=== PATIENT | male | born 1950 | race Caucasian/White ===

== ENCOUNTER → 2019-04-21 | Outpatient (CLI) | payer MEDICARE, BC ==
[~2019-04-21] MED LIST: ALTACE5 M1 PO; AMBIEN10 MG PO; BENADRYL ALLERG25 MG PO; CIALIS5 MG PO; FUROSEMIDE20 MG PO; LANTUS 3ML100 UNITS/ SC; LOVAZA1 GM PO; MYCOPHENOLATE500 MG PO; OCUVITE TABLET1 EAC1 PO; OSCAL D500 MG PO; PROCARDIA XL90 MG PO; SEE LIST ON CHART; TACROLIMUS1 MG PO; TRAMADOL PO; VICODIN PO; ZEBETA10 M1 PO
--- NOTE | 2019-04-21 12:15 | Diagnostic Imaging Report ---
EXAMINATION: PA and lateral views of the chest. COMPARISON: None CLINICAL HISTORY: Cough for 7 weeks, shortness of breath DISCUSSION: Lines/tubes: None. Lungs: The lungs are well inflated. Patchy opacity in the anterior right middle lobe. There is no evidence of pulmonary edema. Pleura: There is no pleural effusion or pneumothorax. Eventration of the right hemidiaphragm Heart and mediastinum: Cardiomediastinal silhouette is unremarkable. Pulmonary vasculature is normal. Bones and soft tissues: No acute bony abnormalities. Mild age-appropriate degenerative changes in the thoracic spine IMPRESSION: 1. Patchy opacity in the anterior right middle lobe may reflect atelectasis given the eventration, however, early pneumonia is a consideration in the appropriate clinical setting. Recommend chest PA and lateral 4-6 weeks after appropriate treatment, if given, to document stability or resolution. Signed by: Dr. Zeb Garcia M.D. on 04/21/2019 12:12 PM
[2019-04-21 12:40] LABS: ALBUMIN 3.6 g/dL (3.5-5.0); ALBUMIN/GLOBULIN RATIO 0.8 (0.8-2.0); ANION GAP 13.6 mmol/L (8-16); CALCIUM 9.5 mg/dL (8.4-10.2); CREATININE, SERUM 1.41 mg/dL (0.72-1.25); POTASSIUM 4.6 mmol/L (3.5-5.1)
== END ==
LOC: RAD 11:17
PROVIDERS: ATTEND Internal Medicine Interventional Cardiology
DX: R05 Cough (principal); R06.02 Shortness of breath; J18.9 Pneumonia, unspecified organism
CPT/HCPCS: 36415; 71046; 80053

== ENCOUNTER → 2019-05-24 | Outpatient (CLI) | payer MEDICARE, BC ==
--- NOTE | 2019-05-24 14:20 | Diagnostic Imaging Report ---
Chest, 2 views, 05/24/2019. History: Follow-up of possible right middle lobe pneumonia. Comparison: 04/21/2019. 03/29/2013, 08/06/2012. Findings: The cardiomediastinal silhouette and pulmonary vasculature are within normal limits. There is unchanged elevation of the right hemidiaphragm with adjacent minimal linear opacity. No focal consolidation. There are no acute osseous or soft tissue abnormalities. 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 Signed by: Shashank Pitt on 05/24/2019 2:17 PM
== END ==
LOC: RAD 13:08
DX: Z09 Encounter for follow-up examination after completed treatment for conditions other than malignant neoplasm (principal); J18.9 Pneumonia, unspecified organism
CPT/HCPCS: 71046

== ENCOUNTER → 2021-11-12 | Day surgery (SDC) | payer MEDICARE ==
[2021-11-11 10:21] LABS: BASOPHILS # (AUTO) 0.1 (0.0-0.1); BASOPHILS % 0.5 % (0.0-1.0); EOSINOPHILS # (AUTO) 0.4 (0.0-0.4); EOSINOPHILS % 3.9 % (0.0-6.0); HEMATOCRIT 44.8 % (38.2-49.6); HEMOGLOBIN 14.9 g/dL (14.0-18.0); LYMPHOCYTES # (AUTO) 3.6 (1.0-3.2); LYMPHOCYTES % 36.5 % (18.0-39.1); MEAN CORPUSCULAR HEMOGLOBIN 30.2 pg (28-32); MEAN CORPUSCULAR HGB CONC 33.3 g/dL (31-35); MEAN CORPUSCULAR VOLUME 90.9 fL (81-99); MONOCYTES # (AUTO) 0.9 (0.2-0.8); NEUTROPHILS # (AUTO) 4.9 (2.1-6.9); NEUTROPHILS % 49.6 % (38.7-80.0); PLATELET COUNT 198 x10e3/uL (140-360); RED BLOOD COUNT 4.93 x10e6/uL (4.3-5.7); RED CELL DISTRIBUTION WIDTH 13.7 % (11.7-14.4)
[2021-11-11 10:40] LABS: ALBUMIN 3.2 g/dL (3.5-5.0); ALBUMIN/GLOBULIN RATIO 0.8 (0.8-2.0); ANION GAP 12.4 mmol/L (8-16); CALCIUM 9.2 mg/dL (8.4-10.2); CHOL/HDL RATIO 3.9 (3.9-4.7); CREATININE, SERUM 1.43 mg/dL (0.72-1.25); POTASSIUM 4.4 mmol/L (3.5-5.1)
[2021-11-12] VITALS (15 sets, daily range): BP systolic 136–170; BP diastolic 71–92
[~2021-11-12] VITALS: Ht 188 cm; Wt 108.9 kg
[~2021-11-12] MED LIST changes: +ALLOPURINOL100 MG PO; +ALPRAZOLAM 0.5 MG TAB ONE; +ASPIRIN 325 MG TAB ONE; +ASPIRIN81 MG PO; +ATORVASTATIN CA20 MG PO; +ATROPINE SULFATE 0.1 MG/ML 10ML SYR ONE; +BIVALRIUDIN 250 MG/VIAL VIAL IV ONE; +CLOPIDOGREL75 MG PO; +DIPHENHYDRAMINE HCL 25 MG CAP ONE; +DOXAZOSIN MESYLA2 MG PO; +FENTANYL CITRATE/PF 100MCG/2 ML INJ ONE; +FISH OIL CONCE1 EAC1 PO; +GLIPIZIDE ER5 MG PO; +GLIPIZIDE5 MG PO; +HEPARIN SOD (PORCINE) 1000 UNIT/ML 30ML ONE; +HEPARIN SOD/SOD CHLORIDE 2,000 ML ONE; +IOPAMIDOL 370 MG/ML 200 ML INFUS..BTL INJ ONE; +LIDOCAINE HCL 2% LOCAL 20 ML VIAL ONE; +MELATONIN3 MG PO; +MIDAZOLAM HCL 2 MG/2 ML VIAL ONE; +NEURONTIN300 MG PO; +NEURONTIN400 MG PO; +NITROGLYCERIN/D5W 200 MCG/ML 250 ML ONE; +PRASUGREL 10 MG TAB ONE; +PRESERVISION T1 EACH PEG; +SODIUM CHLORIDE 0.9% 1000ML 1,000 ML ONE; +SODIUM CHLORIDE 0.9% 50ML 50 ML ONE; +VERAPAMIL HCL 2.5 MG/ML 2 ML VIAL ONE
== END | disposition home or self-care (01) ==
LOC: CATH LAB 09:11
PROVIDERS: ATTEND Internal Medicine Interventional Cardiology
DX: I25.110 Atherosclerotic heart disease of native coronary artery with unstable angina pectoris (principal); R94.39 Abnormal result of other cardiovascular function study; E08.8 Diabetes mellitus due to underlying condition with unspecified complications; Z01.812 Encounter for preprocedural laboratory examination; Z20.822 Contact with and (suspected) exposure to COVID-19; Z79.82 Long term (current) use of aspirin; Z79.02 Long term (current) use of antithrombotics/antiplatelets; Z79.4 Long term (current) use of insulin; Z68.36 Body mass index [BMI] 36.0-36.9, adult; Z86.73 Personal history of transient ischemic attack (TIA), and cerebral infarction without residual deficits; Z82.49 Family history of ischemic heart disease and other diseases of the circulatory system
CPT/HCPCS: 93458; C9600; 36415; 76937; 80053; 80061; 82948; 83880; 85025; 92928; 99152; 99153; C1725; C1874; C1887; C1894; J0583; J1644; J2001; J2250; J3010; J7030; Q9967; U0002